=== PATIENT | female | born 1960 | race Caucasian/White ===

== ENCOUNTER 2019-04-09 07:18 | Outpatient (CLI) | payer OTHER, SELFPAY ==
--- NOTE | ~2019-04-09 | MM_ITS ---
EXAMINATION: MM screening shonda BI w roxana HISTORY: Screening mammogram TECHNIQUE: Craniocaudal and mediolateral oblique 3-D tomosynthesis images were obtained and synthetic 2-D images were generated. CAD analysis was submitted and interpreted. COMPARISON: 12/13/2017, 04/27/2016, 04/17/2015 bilateral digital screening mammogram examinations BREAST PARENCHYMAL COMPOSITION: There are scattered areas of fibroglandular density. FINDINGS: There is no evidence of suspicious mass, calcification, or architectural distortion to sugg est malignancy in either breast. There has been no suspicious interval change. IMPRESSION: 1. No mammographic evidence of malignancy. 2. Recommend routine screening mammography in one year. BI-RADS Category 1: Negative Reviewed, dictated and finalized at location B. RONMENTAL STUDIES DEPARTMENT CHAIR
--- NOTE | ~2019-04-09 | DEXA_ITS ---
Bone Density Report Name: Karoline Sampson Age: 58 Sex: Female Ethnicity: White Date of : 1960 Indication: postmenopausal; height loss; Referring Provider: JEYSON BULLOCK ROSLYN Study: Bone densitometry was performed. Exam Date: April 09, 2019 Accession number: [id number] Bone Density: Region BMD T-score Z-score Classification AP Spine (L1-L4) 0.940 -1.0 0.5 Normal Femoral Neck (Left) 0.811 -0.3 1.0 Normal Total Hip (Left) 0.971 0.2 1.2 Normal Total Hip Bilateral Avg 1.003 0.4 1.5 Normal Femoral Neck (Right) 0.813 -0.3 1.0 Normal Total Hip (Right) 1.033 0.7 1.7 Normal World Health Organization criteria for BMD impression classify patients as: Normal (T-score at or above -1.0), Osteopenia (T-score between -1.0 and -2.5), or Osteoporosis (T-score at or below -2.5). 10-year Fracture Risk: FRAX not reported because: All T-scores for Spine Total, Hip Total, Femoral Neck at or above -1.0 Previous Exams: Region Exam Age BMD T-score BMD Change BMD Change Date g/cm2 vs Baseline vs Previous AP Spine(L1-L4) 04/09/2019 58 0.940 -1.0 -0.034(-3.5%)# -0.034(-3.5%)# 02/07/2012 51 0.974 -0.7 Total Hip(Left) 04/09/2019 58 0.971 0.2 0.023(2.4%)# 0.023(2.4%)# 02/07/2012 51 0.948 0.0 Total Hip(Right) 04/09/2019 58 1.033 0.7 0.036(3.6%)# 0.036(3.6%)# 02/07/2012 51 0.997 0.5 *Denotes significance at 95% confidence level, LSC for AP Spine = 0.022 g/cm2, LSC for Total Hip = 0.027 g/cm2 Clinical Information Provided by Patient: Patient maximum height was 65 Menopause Age: 49 No regular weight bearing exercise Drinks caffeinated beverages Onset of menses at age 12 Number of children 3 Impression: The patient has normal bone mass. No significant bone loss was observed. Discussion: BONE DENSITY IS ABOVE THE MINIMUM DESIRABLE LEVEL AT ALL SKELETAL SITES TESTED. This patient?s bone mineral density is above the minimum desirable level (T-score -1.0 or better) at all sites measured. The patient should follow a healthful lifestyle (good nutrition with adequate calcium and vitamin D, and appropriate weight-bearing exercise). Follow-Up: Consider repeating this study in 5 years or sooner if there is some new clinical indication. Reported by: [facility] on 04/10/2019 9:10:00 AM. Reviewed, dictated and finalized at location A. [facility]
== END 2019-04-09 07:19 | disposition home or self-care (01) ==
PROVIDERS: PCP Nurse Practitioner Adult Health; Visit Provider Nurse Practitioner Adult Health
DX: Z12.31 Encounter for screening mammogram for malignant neoplasm of breast (principal); Z78.0 Asymptomatic menopausal state
CPT/HCPCS: 77063; 77067; 77080

== ENCOUNTER 2020-05-14 15:46 | Outpatient (CLI) | payer OTHER, SELFPAY | END 2020-05-14 15:47 | disposition home or self-care (01) | LOC: ANHCOVIDVC 15:46 | PROVIDERS: PCP Nurse Practitioner Adult Health | DX: Z23 Encounter for immunization (principal) | CPT/HCPCS: 0001A; 91300 ==

== ENCOUNTER 2020-06-04 15:48 | Outpatient (CLI) | payer OTHER, SELFPAY | END 2020-06-04 15:49 | disposition home or self-care (01) | LOC: ANHCOVIDVC 15:48 | PROVIDERS: PCP Nurse Practitioner Adult Health | DX: Z23 Encounter for immunization (principal) | CPT/HCPCS: 0002A; 91300 ==

== ENCOUNTER 2022-05-25 08:36 | Outpatient (CLI) | payer OTHER, SELFPAY ==
--- NOTE | ~2022-05-25 | MM_ITS ---
EXAMINATION: MM screening shonda BI w roxana HISTORY: Screening TECHNIQUE: Craniocaudal and mediolateral oblique 3-D tomosynthesis images were obtained and synthetic 2-D images were generated. CAD analysis was submitted and interpreted. COMPARISON: Comparison to multiple prior studies sequentially, with oldest reviewed study dated 04/27. BREAST PARENCHYMAL COMPOSITION: There are scattered areas of fibroglandular density. FINDINGS: There is no evidence of suspicious mass, calcification, or architectural distortion to sugg est malignancy in either breast. There has been no suspicious interval change. IMPRESSION: 1. No mammographic evidence of malignancy. 2. Recommend routine screening mammography in one year. BI-RADS Category 1: Negative Reviewed, dictated and finalized at location A.
== END 2022-05-25 08:37 | disposition home or self-care (01) ==
LOC: ANHIMG 08:41
PROVIDERS: PCP Family Medicine; Visit Provider Physician Assistant Medical
DX: Z12.31 Encounter for screening mammogram for malignant neoplasm of breast (principal)
CPT/HCPCS: 77063; 77067

== ENCOUNTER 2022-12-03 13:54 | Outpatient (CLI) | payer OTHER, SELFPAY | END 2022-12-03 13:55 | disposition home or self-care (01) | LOC: ANHAUDIO 13:55 | PROVIDERS: PCP Family Medicine; Visit Provider Otolaryngology | DX: H90.41 Sensorineural hearing loss, unilateral, right ear, with unrestricted hearing on the contralateral side (principal) | CPT/HCPCS: 92557; 92567 ==

== ENCOUNTER 2022-12-22 07:44 | Outpatient (CLI) | payer OTHER, SELFPAY ==
--- NOTE | ~2022-12-22 | MR_ITS ---
EXAMINATION: MR IAC wo/w con DATE: 12/22/2022 08:46 INDICATION: Other specified hearing loss, bilateral. TECHNIQUE: Magnetic resonance imaging (MRI) of the brain, brainstem, and internal auditory canals was performed without and with 18 mL MultiHance intravenous contrast. COMPARISON: None. FINDINGS: There are scattered areas of nonspecific increased T2-weighted signal intensity in the cere bral white matter, which is within normal limits for the patient's age. There is no intracranial hemo rrhage, acute infarction, or abnormal intracranial mass lesion. The ventricles are normal in size. Th e orbits are normal. The paranasal sinuses are clear. There are trace bilateral mastoid effusions. Th e internal auditory canals and inner ears and tympanic cavities are normal. IMPRESSION: 1. Normal aging brain. Reviewed, dictated and finalized at location E. IMPRESSION: 1. Normal aging brain.
== END 2022-12-22 07:45 ==
LOC: MICIMG 07:45
PROVIDERS: PCP Physician Assistant Medical; Visit Provider Otolaryngology
DX: H91.8X3 Other specified hearing loss, bilateral (principal)
CPT/HCPCS: 70553; A9577

== ENCOUNTER 2024-01-25 15:34 | Outpatient (CLI) | payer OTHER, SELFPAY ==
--- NOTE | ~2024-01-25 | MM_ITS ---
EXAMINATION: MM screening shonda BI w roxana HISTORY: Screening mammogram TECHNIQUE: Craniocaudal and mediolateral oblique 3-D tomosynthesis images were obtained and synthetic 2-D images were generated. CAD analysis was submitted and interpreted. COMPARISON: 05/25/2022, 04/09/2019 BREAST PARENCHYMAL COMPOSITION:Not Dense. The breasts are almost entirely fatty FINDINGS: No suspicious mass, calcification, or architectural distortion are identified in either jace ast to suggest malignancy. There has been no suspicious interval change. IMPRESSION: No mammographic evidence of malignancy. Recommend routine screening mammography in one year. BI-RADS Category 1: Negative Reviewed, dictated and finalized at location . STRY EXTENSION SPECIALIST
== END 2024-01-25 15:35 | disposition home or self-care (01) ==
LOC: ANHIMG 15:37
PROVIDERS: PCP Family Medicine; Visit Provider Family Medicine
DX: Z12.31 Encounter for screening mammogram for malignant neoplasm of breast (principal)
CPT/HCPCS: 77063; 77067

== ENCOUNTER 2024-01-30 09:36 | Emergency (ER) | payer OTHER, SELFPAY ==
[2024-01-30 09:43] VITALS: BP 136/82; PULSE 102; RESP 16; TEMP 36.7; O2SAT 97
--- NOTE | 2024-01-30 09:58 | ED.URI ---
HPI - URI/Sore Throat General Chief Complaint: Upper Respiratory Infection Stated Complaint: RT ear Pain / sore throat /fever /chest congestion Time Seen by Provider: 01/30/24 10:01 History of Present Illness HPI Narrative: patient presents with complaints of sinus pain and congestion, right ear pain, and now chest congestion. She reports intermittent fever along with her other symptoms for the past couple of weeks. She has been using Tylenol and Flonase for her symptoms with no relief. She reports that chest congestion and right ear pain are worsening significantly. She denies any injury and trauma. She is in no distress, including respiratory distress. Related Data Allergies Allergy/AdvReac Type Severity Reaction Status Date / Time Sulfa (Sulfonamide AdvReac Mild Rash Verified 01/30/24 09:41 Antibiotics) Review of Systems Review of Systems: All systems reviewed & are unremarkable except as noted in HPI and below Constitutional: Constitutional: Reports no additional constitutional complaints and Reports fever(s) ENT: Reports system reviewed and no additional complaints, except as documented, Reports otalgia, Reports nasal discharge, Reports sinus pain and Reports sinus pressure Cardiovascular: Cardiovascular: Reports as per HPI and Reports no additional cardiovascular complaints Respiratory: Respiratory: Reports as per HPI, Reports no additional respiratory complaints and Reports cough Gastrointestinal: Gastrointestinal: Reports no additional gastrointestinal complaints [facility] Past Medical History Medical History Cyst of breast, left, diffuse fibrocystic GERD (gastroesophageal reflux disease) Hypertension Type 2 diabetes mellitus without complications Surgical History Surgical History H/O tubal ligation 1991 Social History Social History Smoking status: Never smoker Alcohol intake: never Substance use: never Lack of Transportation: No Lack of Food: Never True Current Housing: I Have Housing Concerned About Future Housing: No Difficulty Paying Gas/Electric Bills: No Difficulty Paying for Meds: No Currently Unemployed: No Education: Bachelor's Degree Living arrangements: with family Occupation/Education: occupation Gender identity (if verbalized by the patient): Female Spiritual care concerns: No Agree to blood products: Yes Exam Const: General: cooperative, no acute distress, alert and awake Orientation/consciousness: oriented to person, oriented to place and oriented to time HENMT: Head: normal to inspection Ears: TM normal on the left and TM abnormal perforated without discharge on the right Face/Nose/Sinus: sinus tenderness Mouth: Yes moist mucous membranes Throat: postnasal drainage Resp: Effort & Inspection: normal respiratory effort and able to speak in complete sentences Auscultation: clear to auscultation bilaterally, no crackles, no rales, no rhonchi, no wheezes and diminished lung sounds Cardio: Palpation: normal PMI Rate: regular rate Rhythm: regular rhythm Heart sounds: S1 normal heart sound present and S2 normal heart sound present Neuro: General: oriented to person, oriented to place and oriented to time Cranial nerves: Yes CN's II-XII intact bilaterally Psych: Appearance: grossly normal Thought process: Normal thought process present Insight: Good insight present (Psych) Judgement: Good judgement present (Psych) Course Course Level of Care: Express Care Visit Vital Signs Vital signs: Vital Signs Temperature 98.0 F 01/30/24 09:43 Pulse Rate 102 H 01/30/24 09:43 Respiratory Rate 16 01/30/24 09:43 Blood Pressure 136/82 01/30/24 09:43 Pulse Oximetry 97 01/30/24 09:43 Oxygen Delivery Room Air 01/30/24 09:43 Temperature 98.0 F 01/30/24 09:43 Pulse Rate 102 H 01/30/24 09:43 Respiratory Rate 16 01/30/24 09:43 Blood Pressure 136/82 01/30/24 09:43 Pulse Oximetry 97 01/30/24 09:43 Oxygen Delivery Room Air 01/30/24 09:43 MDM - URI/Sore Throat MDM Narrative Medical decision making narrative: Patient with 2 weeks of URI symptoms, fever, sinus pain, now with chest congestion. Cover with doxycycline for sinusitis and possible community-acquired pneumonia. Supportive care measures discussed. Discharge instructions reviewed with patient, as well as provided in writing per nursing staff. The instructions also include specific and strict return/GO TO THE ER as well as f/u information. All questions have been answered, and the patient deny any further questions with discharge and discharge plan. Some parts of this dictation were generated by voice recognition software and may contain typographical and/or grammatical inaccuracies. Differential Diagnosis Differential diagnosis: Likely upper respiratory infection, otitis media, sinusitis, influenza and pharyngitis Medical Records Attestation: I reviewed the patient's medical records. Discharge Plan Discharge Clinical Impression: Sinusitis Qualifiers: Sinusitis location: maxillary Chronicity: acute Recurrence: not specified as recurrent Qualified Code(s): J01.00 - Acute maxillary sinusitis, unspecified Patient Disposition: Home, Self-Care Condition: Stable Instructions: Antibiotic Form, Sinusitis (ED) Additional Instructions: take medications as prescribed. Follow with primary care provider. Emergency department for new or worse sympt Patient Language: Polish Prescriptions: New doxycycline hyclate 100 mg tablet 100 mg PO BID Qty: 20 0RF prednisone 50 mg tablet 50 mg PO DAILY Qty: 5 0RF No Action fluticasone propionate 50 mcg/actuation spray,suspension 1 spray intranasal Q12H Qty: 16 0RF Rx Instructions: administer into each nostril omeprazole 20 mg capsule,delayed release(DR/EC) 20 mg PO DAILY Qty: 90 3RF Ozempic 0.25 mg or 0.5 mg (2 mg/3 mL) pen injector 0.5 mg subcut WEEKLY Qty: 6 1RF Rx Instructions: for 4 weeks amlodipine 5 mg tablet 5 mg PO DAILY Qty: 90 3RF lisinopril-hydrochlorothiazide 20-25 mg tablet 1 tablet PO DAILY Qty: 90 3RF Follow-up/Referrals: Monica Melissa MD [Primary Care Provider] - 2 Weeks Time of Disposition: 10:11
== END 2024-01-30 10:13 | disposition home or self-care (01) ==
PROVIDERS: Emergency Provider Nurse Practitioner Family; PCP Family Medicine
DX: J01.00 Acute maxillary sinusitis, unspecified (principal); I10 Essential (primary) hypertension; E11.9 Type 2 diabetes mellitus without complications; K21.9 Gastro-esophageal reflux disease without esophagitis
CPT/HCPCS: 99213; G0463

== ENCOUNTER 2024-04-11 04:14 | Emergency (ER) | payer OTHER, SELFPAY ==
--- NOTE | ~2024-04-11 | XR_ITS ---
Clinical Indication: Chest tightness PA and lateral views of the chest: Comparison: None Findings: There is left basilar airspace disease. Right lung clear. Cardiomediastinal silhouette is within normal limits. Bones and soft tissues are unremarkable. Impression: Left basilar atelectasis versus pneumonia. Correlate clinically. Reviewed, dictated and finalized at [facility]. TITATIVE STRATEGY ANALYST Impression: Left basilar atelectasis versus pneumonia. Correlate clinically.
--- NOTE | ~2024-04-11 | US_ITS ---
EXAMINATION: US abdomen limited DATE: 04/11/2024 09:23 INDICATION: Epigastric abdominal pain. TECHNIQUE: Multiple grayscale and Doppler ultrasound images of the abdomen were obtained. COMPARISON: None FINDINGS: The visualized portions of the head, body, and tail of the pancreas are normal. The liver i s normal without focal lesion. There is normal flow in main portal vein. The gallbladder is normal in size and contains gallstones. No gallbladder wall thickening or sonographic Aviles sign. The common duct is normal and measures 5 mm. IMPRESSION: 1. Cholelithiasis. No evidence of acute cholecystitis. Reviewed, dictated and finalized at location A. NSED TAX CONSULTANT
[2024-04-11 04:15] VITALS: BP 138/64; PULSE 69; RESP 15; TEMP 36.6; O2SAT 100
--- NOTE | 2024-04-11 04:17 | ECG_ITS ---
Test Date: 2024-04-11 04:24:17 Measurements Intervals [place] Rate: 68 P: 32 TX: 180 QRS: 18 QRSD: 86 T: 38 QT: 399 QTc: 427 Interpretive Statements SINUS RHYTHM BORDERLINE R WAVE PROGRESSION, ANTERIOR LEADS CONSIDER INFERIOR INFARCT, AGE INDETERMINATE BASELINE ARTIFACT- I, II, III, AVR, AVL, AVF ABNORMAL ECG No previous ECG available for comparison Electronically Signed On 04-11-2024 07:09:06 LEAD SYSTEMS ANALYST by Bill Khalil D.O.
[2024-04-11 04:36] LABS: Basophils Absolute Auto 0.1 K/mm3 (0.0-0.1); Eosinophils Absolute Auto 0.1 K/mm3 (0-0.3); Eosinophils Percent Auto 2.2 % (0-4.4); Hemoglobin 14.1 g/dL (12.0-15.0); Immature Granulocyte Absolute 0.03 K/mm3 (0.00-0.031); Immature Granulocyte Percent A 0.5 % (0-0.5); Lymphocytes Absolute Auto 2.36 K/mm3 (0.9-3.2); Lymphocytes Percent Auto 39.5 % (18.3-44.2); Mean Corpuscular HGB Conc 34.4 g/dl (32-36); Mean Corpuscular Volume 87.2 fl (80-100); Mean Platelet Volume 10.1 fl (7.4-10.4); Monocytes Absolute Auto 0.5 K/mm3 (0.1-0.6); Monocytes Percent Auto 7.5 % (2.6-8.5); Neutrophils Percent Auto 49.3 % (45.5-73.1); Platelet Count Result 254 k/mm3 (150-375); Red Cell Distribution Width 13.8 % (11.5-14.5)
[2024-04-11 04:46] LABS: Alanine Aminotransferase 19 U/L (6-35); Albumin Level 4.3 g/dL (3.5-5.1); Alkaline Phosphatase 77 U/L (38-126); Anion Gap 13 mmol/L (4-12); Aspartate Amino Transferase 19 U/L (14-36); Bilirubin,Total 0.7 mg/dL (0.2-1.3); Blood Urea Nitrogen 27 mg/dL (7-17); Calcium 9.6 mg/dL (8.4-10.2); Carbon Dioxide 24 mmol/L (22-30); Chloride 104 mmol/L (98-107); Estimated CRCL calculation 62 ml/min; Estimated Glomerular Filt Rate 59; Glucose 121 mg/dL (65-110); Lipase 179 U/L (23-300); Potassium 3.3 mmol/L (3.4-5.0); Sodium 141 mmol/L (137-145)
[2024-04-11 04:48] LABS: INR 1.1; Prothrombin Time 14.3 Seconds (11.1-14.7)
[2024-04-11 04:49] LABS: Partial Thromboplastin Time 26.4 Seconds (22.3-36.8)
[2024-04-11 04:58] LABS: Troponin I < 0.012 ng/mL (0.000-0.034)
--- NOTE | 2024-04-11 07:28 | ECG_ITS ---
Test Date: 2024-04-11 07:37:50 Measurements Intervals [place] Rate: 82 P: 52 IA: 187 QRS: 34 QRSD: 85 T: 40 QT: 384 QTc: 451 Interpretive Statements SINUS RHYTHM CONSIDER INFERIOR INFARCT, AGE INDETERMINATE BASELINE ARTIFACT- I, II, III, AVR, AVL, AVF ABNORMAL ECG Compared to ECG 04/11/2024 04:24:17 NO SIGNIFICANT CHANGE Electronically Signed On 04-11-2024 07:46:25 METER TESTER POLYPHASE by Bill Khalil D.O.
[2024-04-11 07:37] VITALS: BP 147/73; PULSE 85; RESP 15; O2SAT 100
[2024-04-11] MEDS: ASPIRIN 81 MG CHEWABLE TABLET 324 MG PO (07:39)
[2024-04-11 07:45] VITALS: PULSE 88
[2024-04-11 08:00] LABS: Troponin I < 0.012 ng/mL (0.000-0.034)
--- NOTE | 2024-04-11 09:37 | ED.GENADULT ---
HPI - General Adult General Chief complaint: Chest Pain Stated complaint: ABD PAIN Time Seen by Provider: 04/11/24 08:32 History of Present Illness HPI narrative: patient is a 63-year-old female who presents emergency department chief complaint of tightness in her epigastric area. The patient states symptoms started about 1:00 a.m. reports that they resolved around 7:00 a.m. in the emergency department. The patient reports no prior history of cardiac disease reports that she was nauseated. Related Data Allergies Allergy/AdvReac Type Severity Reaction Status Date / Time Sulfa (Sulfonamide AdvReac Mild Rash Verified 04/11/24 04:14 Antibiotics) Review of Systems Review of Systems: A 10 system review of systems was completed on the patient and is negative except for what is stated in the HPI. Nursing and ancillary documentation was reviewed. [facility]LY [facility] Past Medical History Medical History Hypertension Cyst of breast, left, diffuse fibrocystic GERD (gastroesophageal reflux disease) Type 2 diabetes mellitus without complications Surgical History Surgical History H/O tubal ligation 1991 Social History Social History Smoking status: Never smoker Alcohol intake: never Substance use: never Lack of Transportation: No Lack of Food: Never True Current Housing: I Have Housing Concerned About Future Housing: No Difficulty Paying Gas/Electric Bills: No Difficulty Paying for Meds: No Currently Unemployed: No Education: Bachelor's Degree Living arrangements: with family Occupation/Education: occupation Gender identity (if verbalized by the patient): Female Spiritual care concerns: No Agree to blood products: Yes Exam Narrative: GENERAL: Well-appearing, well-nourished, and in no acute distress. HEAD: Normocephalic, atraumatic. EYES: PERRLA and EOMI. ENT: Nares clear, no rhinorrhea or epistaxis. Mucous membranes moist. NECK: Supple. CHEST: Clear to auscultation. No respiratory distress. HEART: Regular rate and rhythm. No murmur heard. Normal peripheral pulses. ABDOMEN: Soft, nontender, nondistended, normal active bowel sounds. EXTREMITIES: Normal range of motion. No edema. SKIN: Warm, dry, no rash. NEURO: No focal deficits. Alert and oriented x3. PSYCH: Normal mood and affect. Course Vital Signs Vital signs: Vital Signs Temperature 36.6 C 04/11/24 04:15 Pulse Rate 69 04/11/24 04:15 Respiratory Rate 15 04/11/24 04:15 Blood Pressure 138/64 04/11/24 04:15 Pulse Oximetry 100 04/11/24 04:15 Oxygen Delivery Room Air 04/11/24 04:15 Temperature 36.6 C 04/11/24 04:15 Pulse Rate 88 04/11/24 07:45 Respiratory Rate 15 04/11/24 07:37 Blood Pressure 147/73 H 04/11/24 07:37 Pulse Oximetry 100 04/11/24 07:37 Oxygen Delivery Room Air 04/11/24 07:44 Medical Decision Making MDM Narrative Medical decision making narrative: Differential diagnosis includes biliary colic, ACS, gastritis, esophageal spasm EKG showed no acute ischemic changes laboratory studies were obtained on the patient which showed a normal CBC normal CMP the patient's symptoms are currently resolved patient had negative troponins for 0 hour 3 hour a gallbladder ultrasound was obtained showed evidence of cholelithiasis without cholecystitis the patient will be referred to General surgery will be instructed to a low-fat diet Vital Signs Vital Signs: Vital Signs Temperature 36.6 C 04/11/24 04:15 Pulse Rate 69 04/11/24 04:15 Respiratory Rate 15 04/11/24 04:15 Blood Pressure 138/64 04/11/24 04:15 Pulse Oximetry 100 04/11/24 04:15 Oxygen Delivery Room Air 04/11/24 04:15 Temperature 36.6 C 04/11/24 04:15 Pulse Rate 88 04/11/24 07:45 Respiratory Rate 15 04/11/24 07:37 Blood Pressure 147/73 H 04/11/24 07:37 Pulse Oximetry 100 04/11/24 07:37 Oxygen Delivery Room Air 04/11/24 07:44 Lab Data 04/11/24 04:30 04/11/24 04:30 Labs: Lab Results 04/11/24 04/11/24 Range/Units 04:30 07:29 WBC 6.0 (4.5-10.0) K/mm3 RBC 4.70 (4.2-5.4) M/mm3 Hgb 14.1 (12.0-15.0) g/dL Hct 41.0 (37.0-47.0) % MCV 87.2 (80-100) fl MCH 30.0 (26-34) pg MCHC 34.4 (32-36) g/dl RDW 13.8 (11.5-14.5) % Plt Count 254 (150-375) k/mm3 MPV 10.1 (7.4-10.4) fl Immature Gran % (Auto) 0.5 (0-0.5) % Neut % (Auto) 49.3 (45.5-73.1) % Lymph % (Auto) 39.5 (18.3-44.2) % [place] % (Auto) 7.5 (2.6-8.5) % Eos % (Auto) 2.2 (0-4.4) % Baso % (Auto) 1.0 (0.2-1.2) % Lymph # (Auto) 2.36 (0.9-3.2) K/mm3 [place] # (Auto) 0.5 (0.1-0.6) K/mm3 Eos # (Auto) 0.1 (0-0.3) K/mm3 Baso # (Auto) 0.1 (0.0-0.1) K/mm3 Abs Immat Gran (auto) 0.03 (0.00-0.031) K/mm3 Absolute Neuts (auto) 3.0 (1.3-6.7) K/mm3 Absolute Nucleated RBC 0.000 (0.0-0.012) K/mm3 Nucleated RBC % 0.0 (0.0-0.2) % PT 14.3 (11.1-14.7) Seconds INR 1.1 APTT 26.4 (22.3-36.8) Seconds Sodium 141 (137-145) mmol/L Potassium 3.3 L (3.4-5.0) mmol/L Chloride 104 (98-107) mmol/L Carbon Dioxide 24 (22-30) mmol/L Anion Gap 13 H (4-12) mmol/L BUN 27 H (7-17) mg/dL Creatinine 0.95 (0.7-1.0) mg/dL Estim Creat Clear Calc 62 ml/min Estimated GFR 59 (59 - ) Glucose 121 H (65-110) mg/dL Calcium 9.6 (8.4-10.2) mg/dL Total Bilirubin 0.7 (0.2-1.3) mg/dL AST 19 (14-36) U/L ALT 19 (6-35) U/L Alkaline Phosphatase 77 (38-126) U/L Troponin I < 0.012 < 0.012 (0.000-0.034) ng/mL Total Protein 7.0 (6.3-8.2) g/dL Albumin 4.3 (3.5-5.1) g/dL Lipase 179 (23-300) U/L Discharge Plan Discharge Clinical Impression: Atypical chest pain, Cholelithiasis Patient Disposition: Home, Self-Care Condition: Stable Instructions: Antibiotic Form, Chest Pain (ED), Gallstones (ED), Low Fat Diet (ED) Patient Language: [place] Prescriptions: No Action omeprazole 20 mg capsule,delayed release(DR/EC) 20 mg PO DAILY Qty: 90 3RF amlodipine 5 mg tablet 5 mg PO DAILY Qty: 90 3RF lisinopril-hydrochlorothiazide 20-25 mg tablet 1 tablet PO DAILY Qty: 90 3RF Ozempic 0.25 mg or 0.5 mg (2 mg/3 mL) pen injector 0.5 mg subcut WEEKLY Qty: 6 1RF Rx Instructions: for 4 weeks Follow-up/Referrals: Monica Melissa MD [Primary Care Provider] - Kaden Coles MD [Physician] - Time of Disposition: 09:43
[2024-04-11 10:18] VITALS: BP 149/71; PULSE 90; RESP 18; O2SAT 100
== END 2024-04-11 10:21 | disposition home or self-care (01) ==
PROVIDERS: Student in an Organized Health Care Education/Training Program; Emergency Provider Emergency Medicine; PCP Family Medicine
DX: R07.89 Other chest pain (principal); K80.20 Calculus of gallbladder without cholecystitis without obstruction; I10 Essential (primary) hypertension; K21.9 Gastro-esophageal reflux disease without esophagitis; E11.9 Type 2 diabetes mellitus without complications
CPT/HCPCS: 36415; 71046; 76705; 80053; 83690; 84484; 85025; 85610; 85730; 93005; 99284; A9270

== ENCOUNTER 2024-05-21 00:17 | Day surgery (SDC) | payer OTHER, SELFPAY ==
[2024-05-02 09:29] VITALS: BMI 38.4
--- NOTE | 2024-05-02 09:36 | PC.NURSE ---
Report to the Outpatient Waiting Room, entrance under the green pavilion located off [facility], at time __1000am on date __05/21/24 . Planned Procedure Time: _1200pm .? Time changes happen often and if your time is changed the preop area will call you the afternoon before. - You and your visitor will be asked to self-screen and do not enter if you have any COVID symptoms. Please call surgeon if you need to reschedule. - A mask is optional within the hospital at this time. Patients may have clear liquids (water, carbonated beverages, clear teas, apple juice) until 3 hours prior to surgery with a maximum of 20 ounces. - No food from midnight until time of surgery and no smoking, or chewing tobacco (or any form of nicotine). No chewing gum, candy or mints. (0900am) Take only the following medications with a SIP of water on the morning of surgery: Amlodipine DO NOT STOP ANY OF YOUR OTHER PRESCRIPTION MEDICATIONS PRIOR TO SURGERY EXCEPT THE FOLLOWING Hold all vitamins and supplements for 3 days per anesthesiologist.Date to take last dose____05/09/24 Please no make-up, nail [place], hairspray, perfume, deodorant, or body powder the day of surgery.? No jewelry (including any body piercings) or valuables the day of surgery, leave them at home.? Please take a shower or bath the night before, or the morning of, surgery with an antibacterial soap.? Wear comfortable, loose fitting clothing.. - Jewelry must be removed prior to entering the operating room.? Rings and piercings that are not removed may be cut off. - The hospital will not accept responsibility for valuables.? - Please leave all valuables, including medications, at home the day of surgery. If you are going home after surgery, a licensed sales driver must drive you home.? - NO public transportation without another adult if you receive anesthesia. - We recommend that an adult stay with you for 24 hours following discharge. - We also recommend that you do not drive, make important decision, drink alcoholic beverages, or take any drugs that were not prescribed by your health care provider for at least 24 hours after your discharge time. Follow any additional instructions given to you from your surgeon. Telephone instructions given to __Patient and asked if any additional questions and then verbalized understanding. Patient advised to call surgeon office or pre surgery nurse liaison [phone] if any additional questions.
[2024-05-21] VITALS (13 sets, daily range): BP systolic 110–146; BP diastolic 50–84; PULSE 78–102; RESP 12–16; TEMP 36.6–36.7; O2SAT 91–100
--- NOTE | 2024-05-21 08:28 | P.HP_ITS ---
H&P: HPI History of Present Illness Date/Time: 05/21/24 08:28 Chief Complaint: Biliary colic, gallstones Narrative: Ms. Sampson presents to the office for evaluation. She was recently in [facility] 6 days ago with severe epigastric and RUQ abdominal pain that radiated into her back with associated nausea. Symptoms began after eating chicken stir ortiz for dinner. Abdominal ultrasound was performed showing cholelithiasis without evidence of acute cholecystitis. She's has much lesser intermittent episodes of RUQ abdominal pain. No bloating or diarrhea after eating. Admits to family history of gallbladder disease in multiple relatives. Review of Systems Review of Systems: The remainder of the review of systems to include constitutional, HEENT, cardiovascular, respiratory, GI, , integumentary, musculoskeletal, endocrine, immunologic, hematologic, psychiatric, and neurologic are all negative except for which is mentioned above in the HPI. [facility] Past Medical History Medical History Hypertension Cyst of breast, left, diffuse fibrocystic GERD (gastroesophageal reflux disease) Type 2 diabetes mellitus without complications Surgical History Surgical History H/O tubal ligation 1991 Family History Family History Other Diabetes mellitus Hypertension Lung cancer Social History Social History Smoking status: Never smoker Alcohol intake: never Drinks per week: 2 Substance use: never Lack of Transportation: No Lack of Food: Never True Current Housing: I Have Housing Concerned About Future Housing: No Difficulty Paying Gas/Electric Bills: No Difficulty Paying for Meds: No Currently Unemployed: No Education: Bachelor's Degree Living arrangements: with family Additional living arrangements comments: Occupation/Education: occupation Gender identity (if verbalized by the patient): Female Spiritual care concerns: No Agree to blood products: Yes Meds Home Medications and Allergies Home Medications ?Medication ?Instructions ?Recorded ?Confirmed ?Type lisinopril 20 1 tablet PO DAILY #90 tabs 08/21/23 05/14/24 Rx mg-hydrochlorothiazide 25 mg tablet amlodipine 5 mg tablet 5 mg PO DAILY #90 tabs 04/16/24 05/14/24 Rx omeprazole 20 mg capsule,delayed 20 mg PO DAILY #90 caps 04/16/24 05/14/24 Rx release cetirizine 10 mg tablet (Zyrtec) 10 mg PO DAILY PRN sinus symptoms 05/02/24 05/14/24 History Allergies Allergy/AdvReac Type Severity Reaction Status Date / Time Sulfa (Sulfonamide AdvReac Mild Rash Verified 05/14/24 08:31 Antibiotics) Exam Const: General: comfortable and no acute distress HENMT: Ears: TM's normal bilaterally Face/Nose/Sinus: Normal nares present Mouth: Yes moist mucous membranes Eyes: General: appearance normal, both eyes and all related structures Sclera: sclerae normal Pupils: Equal, round and reactive pupils present EOM: EOMs intact bilaterally Neck: Neck: supple and no JVD Resp: Effort & Inspection: normal respiratory effort Auscultation: clear to auscultation bilaterally Cardio: Rate: regular rate Rhythm: regular rhythm GI: Other: Soft, nondistended. Periumbilical scar. No hernias and no masses. No RUQ abdominal tenderness. Skin: General skin exam: normal color and no rashes or lesions noted Neuro: General: gait normal Speech: normal speech Motor exam (neuro): 5/5 motor strength present throughout Sensory Exam: normal sensation Extrem: General: normal to inspection Psych: Mental Status: mental status grossly normal Affect: normal affect Assessment and Plan Assessment and plan (1) Biliary colic: Code(s): K80.50 - Calculus of bile duct without cholangitis or cholecystitis without obstruction Status: Acute Assessment and Plan: Prior to the patients visit in the office, I reviewed the report and imaging from the patients recent ER visit. Explained I suspect her symptoms of radiating epigastric and RUQ abdominal pain with associated nausea are gallbladder in nature and that that she would benefit from laparoscopic cholecystectomy. The surgery was discussed in detail with the patient including description, risks, benefits, post-operative restrictions, recovery, and anticipated outcome.? Spec ific risks to include bleeding and possible need for blood transfusion, infection, bile leak, injury to other organs, common?bile duct injury, and conversion to open cholecystectomy has been discussed.? Surgical description and low fat handout sheets were given and explained.? Questions answered and the patient agrees to proceed as discussed.? (2) Cholelithiasis: Code(s): K80.20 - Calculus of gallbladder without cholecystitis without obstruction Status: Inactive Assessment and Plan: As above
[2024-05-21] MEDS: INDOCYANINE GREEN 25 MG VIAL WITH DILUENT 3.75 MG IV PUSH (08:30)
[2024-05-21] MEDS: LACTATED RINGERS 1,000 ML 30 ML IV CONT ×2 (08:30→12:41)
[2024-05-21] MEDS: ACETAMINOPHEN 500 MG TABLET 1000 MG PO (08:30)
[2024-05-21] MEDS: KETOROLAC 15 MG/ML VIAL (*BKC) IV PUSH (08:30)
--- NOTE | 2024-05-21 08:31 | WPDHPUPDATE1 ---
History and Physical Update Update Date/Time: 05/21/24 08:31 History and Physical has been reviewed, including an updated exam of the patient. There are NO changes in the patient's condition. Risks, benefits, and alternatives have been discussed and questions answered. Patient agrees to proceed with procedure.
[2024-05-21 09:25] LABS: Amylase 59 U/L (30-110)
--- NOTE | 2024-05-21 10:14 | WPDANESEPPF ---
Anes - Initial Pre Proc Eval Procedure: Operation Date: 05/21/24 10:00 Proposed Procedures p Robotic Assisted Cholecystectomy, Possible Open - Kaden Coles MD Date/Time: 05/21/24 10:14 Surgeon: Kaden Coles MD Pre Op Diagnosis: Biliary Colic with Gallstones Patient Data Age: 63 Gender: F Height: 1.65 m Weight: 106.5 kg Last Vital Signs Temp 36.6 C 05/21/24 09:22 Pulse 83 05/21/24 09:22 Resp 14 05/21/24 09:22 BP 143/84 H 05/21/24 09:22 Pulse Ox 100 05/21/24 09:22 Allergies Allergy/AdvReac Type Severity Reaction Status Date / Time Sulfa (Sulfonamide AdvReac Mild Rash Verified 05/21/24 09:19 Antibiotics) Home Medications ?Medication ?Instructions ?Recorded ?Confirmed ?Type lisinopril 20 1 tablet PO DAILY #90 tabs 08/21/23 05/14/24 Rx mg-hydrochlorothiazide 25 mg tablet amlodipine 5 mg tablet 5 mg PO DAILY #90 tabs 04/16/24 05/21/24 Rx omeprazole 20 mg capsule,delayed 20 mg PO DAILY #90 caps 04/16/24 05/14/24 Rx release cetirizine 10 mg tablet (Zyrtec) 10 mg PO DAILY PRN sinus symptoms 05/02/24 05/14/24 History Laboratory Tests 05/21/24 08:54 Amylase 59 U/L (30-110) Patient hx anesthesia problems: none Family hx anesthesia problems: none Results Review: All pre-operative results and documents have been reviewed as part of the pre-operative evaluation. [facility] Past Medical History Medical History Hypertension Cyst of breast, left, diffuse fibrocystic GERD (gastroesophageal reflux disease) Type 2 diabetes mellitus without complications Surgical History Surgical History H/O tubal ligation 1991 Family History Family History Other Diabetes mellitus Hypertension Lung cancer Social History Social History Smoking status: Never smoker Alcohol intake: never Drinks per week: 2 Substance use: never Lack of Transportation: No Lack of Food: Never True Current Housing: I Have Housing Concerned About Future Housing: No Difficulty Paying Gas/Electric Bills: No Difficulty Paying for Meds: No Currently Unemployed: No Education: Bachelor's Degree Living arrangements: with family Additional living arrangements comments: Occupation/Education: occupation Gender identity (if verbalized by the patient): Female Spiritual care concerns: No Agree to blood products: Yes Anes - Eval Final PreProcedure Day of Procedure 05/21/24 10:14 Patient weight: obese Heart: regular rate and rhythm Lungs: clear to auscultation Airway: Mallampati scale class III Neurological: alert and oriented Last oral intake: >/= 8 hours ASA classification: III Emergent: no Anesthetic plan: proceed Anesthesia type and monitoring: general ETT and standard monitoring Results Review: All pre-operative results and documents have been reviewed as part of the pre-operative evaluation. Informed Consent: The patient's anesthetic plan and its attendant risks and benefits were discussed with the patient/family/POA. Questions were solicited and answers provided to the satisfaction of the patient/family/POA.
[2024-05-21] MEDS: ceFAZolin 2 GM/D5W 50 ML 2 GM/50 ML BAG IVPB (10:23)
[2024-05-21] MEDS: LIDO 1%/EPINEPHRINE 1:100,000 20 ML VIAL 30 ML INFILTRATE (10:42)
[2024-05-21] MEDS: BUPivacaine HCL 0.5% 10 ML AMP 30 ML INFILTRATE (10:42)
--- NOTE | 2024-05-21 15:46 | W.PM.PROC2 ---
Procedure Note - Detailed Date of Procedure 05/21/24 Pre-op Diagnosis Biliary Colic with Gallstones Post-op Diagnosis Other (Chronic cholecystitis secondary to cholelithiasis) Procedure Performed Robotic assisted laparoscopic cholecystectomy Surgeon Kaden Coles MD Microbiology Coordinator [facility] Anesthesia General Indications Patient is a 63-year-old female who presented with complaints of right upper quadrant and epigastric abdominal pain. This was made worse with eating. She had an ultrasound showing multiple gallstones within the gallbladder. She presents now for elective robotic assisted laparoscopic cholecystectomy. Findings The patient large gallbladder filled with large gallstones. The gallbladder wall was mildly thickened histology assistant with chronic inflammation. The gallbladder was also very intrahepatic into the gallbladder fossa of the liver. There was a small 1 to 2 mm duct of Luschka coming from the gallbladder liver bed to the posterior wall the gallbladder. Description of Procedure After informed consent was obtained patient brought to the operating room where she was placed in supine position and general endotracheal anesthesia was administered. The abdomen was then prepped and draped usual sterile fashion. A time-out was then performed correctly identifying the patient as well as procedure to be performed. She was given perioperative IV antibiotics. I then entered the abdomen in the left upper quadrant utilizing a 5mm Optiview port. Once inside the abdomen insufflated to adequate pneumoperitoneum of 15mmHg of CO2. I then placed 8mm robotic trocar ports across the mid lower abdomen under direct visualization. 5mm laparoscopic trocar port in the left upper quadrant was then switched to a 10mm bedside histology assistant trocar port. The de Elvira robot was then brought to the patient's bedside and docked to the right side. The robotic arms were then attached to the robotic ports. Robotic instruments were then advanced into the abdomen under direct visualization. I then scrubbed out the procedure sent down the robotic console. The gallbladder was visualized it was distended and large. Large gallstones were noted to be within the gallbladder. The gallbladder wall was mildly thickened with acute inflammation but no evidence of acute erythema of the gallbladder wall or acute swelling of the gallbladder. The gallbladder was held with a laparoscopic grasper at the dome and elevated over the right half liver towards right shoulder. A 2nd grasper used to hold the gallbladder at the infundibulum. I then proceeded to strip down the visceral peritoneum off of the infundibular gallbladder with robotic dissection. I then identified what appeared to be the cystic duct and the structure was then dissected out circumferentially. Firefly was used to identify the structure and it did light up consistent with the cystic duct. The cystic duct and common bile duct junction was seen on firefly as well. The cystic artery was then identified it was then dissected out circumferentially as well. Posterior wall the gallbladder at the infundibulum dissected free liver into the critical view was obtained. At this point I then placed 1 robotic clips proximally 1 clip distally high on infundibular gallbladder. The cystic artery was then clipped in a similar fashion robotically. The cystic duct was then divided with the robotic hook cautery on pure cut. The cystic artery was divided in a similar fashion. The gallbladder was then resected off the liver utilized electrocautery. The gallbladder was very intrahepatic and deep into the liver gallbladder fossa. At 1 point assisted up the posterior wall the gallbladder there appeared to be a small bile duct of Luschka coming directly from the gallbladder bed into the posterior wall the gallbladder. This was a small duct measuring only 1 to 2 mm. After dividing the duct there was a small amount of leaking of bile from the cystic duct after was divided with electrocautery. I went ahead continued dissection of the gallbladder off the liver bed. Due to the intrahepatic nature of the gallbladder wall posteriorly the gallbladder wall was entered with electrocautery and some bile spilled and a couple gallstones came out of the gallbladder. These were quickly retrieved and placed into an Endo-Catch bag which was placed into the abdomen via the bedside histology assistant trocar port site. Once I had the gallbladder completely free from the liver was then placed into the Endo-Catch bag. I then irrigated off the gallbladder fossa and I saw where the very small bile leak was coming out of the duct of Luschka. I then proceeded to ligate this very small duct utilizing a 3-0 PDS suture which I placed robotically to ligated. I then irrigated once more and there is no evidence of any further bile coming from the gallbladder bed. I then proceeded to aspirate all the fluid in irrigate the right upper quadrant the abdomen. Hemostasis was good in the gallbladder fossa. I then placed a 15 [place] round Sinan drain into the area the gallbladder fossa and brought out through the most lateral right subcostal port site. It was secured to skin with 3-0 nylon suture. All the robotic instruments were then removed from the abdomen with under direct visualization. The de Elvira robot was then docked from the patient's bedside. I then scrubbed back in the procedure and then removed the gallbladder within the Endo-Catch bag and the gallbladder and the gallstones were sent to pathology for examination. I then removed all the trocar ports under direct visualization all port sites appeared hemostatic. The abdomen was allowed to decompress. The 12mm left upper quadrant trocar port fascial defect was then closed utilizing a 0 Vicryl suture at the fascial level. The skin edges in all the port sites were then approximated lies in a running subcuticular 4 Monocryl suture. The incisions were then cleaned and then skin glue was applied. The drain was placed to active grenade bulb suction and a drain dressing was placed. The patient tolerated the procedure well no complications. All sponges, needles, and instrument counts were correct at the end procedure. EBL was _30__cc. The patient was awakened and taken to recovery in stable and satisfactory condition. Implants None Estimated Blood Loss 30 Drains Yes (15 [place] round Sinan drain right upper quadrant) Packing No Pathology Yes (Gallbladder and gallstones to pathology) Complications No immediate complications Condition Stable Disposition PACU [facility] Billing Surgery - Charge Forward: Surgery Billing
== END 2024-05-21 16:10 | disposition home or self-care (01) ==
PROVIDERS: PCP Family Medicine; Visit Provider Surgery
PROC: 0FT44ZZ Resection of Gallbladder, Percutaneous Endoscopic Approach (ICD-10-PCS; CPT 47562; principal; 2024-05-21 10:00)
DX: K80.10 Calculus of gallbladder with chronic cholecystitis without obstruction (principal); I10 Essential (primary) hypertension; K21.9 Gastro-esophageal reflux disease without esophagitis; E11.9 Type 2 diabetes mellitus without complications; E66.9 Obesity, unspecified; Z68.39 Body mass index [BMI] 39.0-39.9, adult; Z98.890 Other specified postprocedural states; Z98.51 Tubal ligation status; Z80.1 Family history of malignant neoplasm of trachea, bronchus and lung
CPT/HCPCS: 47562; S2900; 36415; 82150; 88304; A9270; J0690; J1100; J1885; J2004; J2250; J2270; J2371; J2405; J2704; J7030; J7120

== ENCOUNTER 2024-08-27 09:49 | Outpatient (CLI) | payer OTHER, SELFPAY ==
--- NOTE | ~2024-08-27 | DEXA_ITS ---
Bone Density Report Name: DOUGIE SPEARS Age: 63 Sex: Female Ethnicity: White Date of : 1960 Indication: postmenopausal; screening for osteoporosis; height loss; Referring Provider: OMI BIGGS Study: Bone densitometry was performed. Exam Date: August 27, 2024 Accession number: [id number] Bone Density: Region BMD T-score Z-score Classification AP Spine(L1-L4) 0.946 -0.9 0.9 Normal Femoral Neck (Left) 0.723 -1.1 0.4 Osteopenia Total Hip (Left) 0.914 -0.2 1.0 Normal Femoral Neck (Right) 0.774 -0.7 0.9 Normal Total Hip (Right) 0.960 0.1 1.4 Normal Total Hip Mean 0.937 -0.1 1.2 Normal World Health Organization criteria for BMD impression classify patients as: Normal (T-score at or above -1.0), Osteopenia (T-score between -1.0 and -2.5), or Osteoporosis (T-score at or below -2.5). 10-year Fracture Risk(1): Major Osteoporotic Fracture 7.2% Hip Fracture 0.5% Reported Risk Factors: [place] (), Neck BMD=0.723, BMI=41.4 (1) FRAX(R) Version 3.08. Fracture probability calculated for an untreated patient. Fracture probability may be lower if the patient has received treatment. Previous Exams: Region Exam Age BMD T-score BMD Change BMD Change Date g/cm2 vs Baseline vs Previous AP Spine (L1-L4) 08/27/2024 63 0.946 -0.9 0.006 (0.6%) 0.006 (0.6%) 04/09/2019 58 0.940 -1.0 Total Hip(Left) 08/27/2024 63 0.914 -0.2 -0.034 (-3.6%) -0.057 (-5.9%) 04/09/2019 58 0.971 0.2 0.023 (2.4%)# 0.023 (2.4%)# 02/07/2012 51 0.948 0.0 Total Hip(Right) 08/27/2024 63 0.960 0.1 -0.073 (-7.0%) -0.073 (-7.0%) 04/09/2019 58 1.033 0.7 *Denotes significance at 95% confidence level, LSC for AP Spine = 0.022 g/cm2, LSC for Total Hip = 0.027 g/cm2 # Denotes dissimilar scan types or analysis methods Clinical Information Provided by Patient: Patient maximum height was 65 Menopause Age: 49 No regular weight bearing exercise Drinks caffeinated beverages Onset of menses at age 12 Number of children 3 Impression: The patient has low bone mass, based on the Left Femoral Neck T-score. The patient has an estimated ten-year risk of hip fracture of 0.5% and an estimated ten-year risk of major fracture of 7.2%, based on the WHO FRAX algorithm. The BMD for the Total Hip(Left) decreased, changing by -5.9% since the last DXA exam. The BMD for the Total Hip(Right) decreased, changing by -7.0% since the last DXA exam. Discussion: BONE DENSITY IS LOW AT ONE OR MORE SKELETAL SITES. This patient's lowest T-score is low at one or more skeletal sites. It meets the World Health Organization's (WHO) criteria for ?low bone mass? (T-score between -1.0 and -2.5). The patient's 10-year risk of fracture as calculated by FRAX is less than the threshold where pharmacological therapy is recommended by the National Osteoporosis Foundation (NOF). However, all treatment decisions require clinical judgment and consideration of individual patient factors, including patient preferences, comorbidities, previous drug use, risk factors not captured in the FRAX model (e.g., frailty, falls, vitamin D deficiency, increased bone turnover, interval significant decline in bone density) and possible under or overestimation of fracture risk by FRAX. The patient should follow a healthful lifestyle (good nutrition with adequate calcium and vitamin D, and appropriate weight-bearing exercise). Follow-Up: Consider repeating this study in 2 years to reassess this patient's status, or sooner if there is some new clinical indication. Reported by: CLIFTON on 08/27/2024 10:33:00 AM. Reviewed, dictated and finalized at location A.
== END 2024-08-27 09:50 | disposition home or self-care (01) ==
PROVIDERS: Visit Provider Student in an Organized Health Care Education/Training Program
DX: M85.80 Other specified disorders of bone density and structure, unspecified site (principal); Z78.0 Asymptomatic menopausal state
CPT/HCPCS: 77080